=== PATIENT | male | born 1980 | race Two or more races ===

== ENCOUNTER 2019-11-03 09:08 | Emergency (ER) | payer SELFPAY ==
[~2019-11-03] VITALS: Ht 180.3 cm; Wt 90.7 kg
== END 2019-11-03 09:50 | disposition left against medical advice (07) ==
LOC: FSED 09:08
DX: Z53.21 Procedure and treatment not carried out due to patient leaving prior to being seen by health care provider (principal)
CPT/HCPCS: 99281

== ENCOUNTER 2022-05-27 13:04 | Emergency (ER) | payer MEDICARE, OTHER ==
[~2022-05-27] VITALS: Ht 180.3 cm; Wt 136.1 kg
[2022-05-27] MEDS ORDERED: IBUPROFEN600 MG PO (13:56)
[2022-05-27] MEDS ORDERED: BENZONATATE200 MG PO (13:56)
== END 2022-05-27 14:00 | disposition home or self-care (01) ==
LOC: ER 13:16
DX: R05.9 Cough, unspecified (principal); S29.011A Strain of muscle and tendon of front wall of thorax, initial encounter; J06.9 Acute upper respiratory infection, unspecified
CPT/HCPCS: 99282

== ENCOUNTER 2022-09-21 09:07 | Emergency (ER) | payer OTHER ==
[~2022-09-21] VITALS: Ht 180.3 cm; Wt 138.3 kg
[~2022-09-21 09:07] MED LIST: BENZONATATE200 MG PO; IBUPROFEN600 MG PO
[2022-09-21] MEDS ORDERED: AUGMENTIN 500-1 EACH PO (10:31)
[2022-09-21] MEDS ORDERED: PROVENTIL HFA6.7 GM INH (10:32)
[2022-09-21] MEDS ORDERED: M-END DMX LIQU473 ML PO (10:33)
[2022-09-21] MEDS ORDERED: MEDROL4 MG PO (10:36)
[2022-09-21] MEDS ORDERED: NAPROSYN500 MG PO (10:40)
== END 2022-09-21 10:58 | disposition home or self-care (01) ==
LOC: FSED 09:19
DX: H66.91 Otitis media, unspecified, right ear (principal); J01.90 Acute sinusitis, unspecified; J98.01 Acute bronchospasm; M54.12 Radiculopathy, cervical region
CPT/HCPCS: 81003; 83518; 87400; 99282

== ENCOUNTER 2022-10-17 07:49 | Emergency (ER) | payer OTHER ==
[~2022-10-17] VITALS: Ht 180.3 cm; Wt 138.3 kg
[~2022-10-17 07:49] MED LIST changes: +AUGMENTIN 500-1 EACH PO; +M-END DMX LIQU473 ML PO; +MEDROL4 MG PO; +NAPROSYN500 MG PO; +PROVENTIL HFA6.7 GM INH
[2022-10-17] MEDS ORDERED: MUCINEX DM ER1 EACH PO (09:03)
== END 2022-10-17 09:36 | disposition home or self-care (01) ==
LOC: ER 07:58
DX: R06.02 Shortness of breath (principal); J40 Bronchitis, not specified as acute or chronic; R05.9 Cough, unspecified
CPT/HCPCS: 71046; 99283

== ENCOUNTER 2024-04-15 21:22 | Emergency (ER) | payer OTHER ==
[~2024-04-15] VITALS: Ht 180.3 cm; Wt 138.3 kg
[~2024-04-15 21:22] MED LIST changes: +MUCINEX DM ER1 EACH PO
[2024-04-15] MEDS ORDERED: SODIUM CHLORIDE 0.9% 1000ML 1,000 ML IV ONE ×2 (22:00)
[2024-04-15 23:08] VITALS: TEMP 98.8
[2024-04-16] MEDS ORDERED: SODIUM CHLORIDE 0.9% 1000ML 2,000 ML ONE (01:25)
[2024-04-16] MEDS: METHYLPREDNISOLONE SOD SUCC 125 MG/2ML VIAL IM ONE (01:28)
[2024-04-16 01:35] VITALS: PULSE 103; RESP 20; O2SAT 96
[2024-04-16] MEDS: IPRATROPIUM BROMIDE 0.02% 2.5 ML NEB NEB ONE (01:38)
[2024-04-16] MEDS: ALBUTEROL SULF 0.083% NEB SOLN 3 ML NEB NEB STA (01:39)
[2024-04-16 02:00] VITALS: PULSE 100; RESP 20
[2024-04-16] MEDS ORDERED: ALBUTEROL1.25 MG/3 NEB (02:25)
[2024-04-16] MEDS ORDERED: MEDROL4 M2 PO (02:25)
[2024-04-16] MEDS ORDERED: VENTOLIN HFA18 GM INH (02:25)
[2024-04-16 02:46] VITALS: BP 146/96; PULSE 96; RESP 18; TEMP 98.4; O2SAT 99
== END 2024-04-16 02:35 | disposition home or self-care (01) ==
LOC: ER 21:30
DX: R06.02 Shortness of breath (principal); J45.901 Unspecified asthma with (acute) exacerbation; R07.89 Other chest pain; R05.9 Cough, unspecified; E11.9 Type 2 diabetes mellitus without complications; Z11.52 Encounter for screening for COVID-19; F17.210 Nicotine dependence, cigarettes, uncomplicated
CPT/HCPCS: 71045; 93005; 94640; 94760; 94799; 99283; J2919 ×2; J7030; U0002